=== PATIENT | female | born 1970 | race Caucasian/White ===

== ENCOUNTER 2018-08-26 10:53 | Emergency (ER) | payer OTHER ==
[~2018-08-26] VITALS: Ht 154.9 cm; Wt 72.6 kg
[~2018-08-26 10:53] MED LIST: ADVIL200 MG PO; BACTROBAN CREAM30 G1 TOP; IBUPROFEN 600600 M1 PO; LORTAB 5 MG/5001 TAB PO; NOHOMEMEDICATIONS; NORCO 5-325 TA1 EACH PO
[2018-08-26] MEDS ORDERED: ZPAK PO (11:35)
[2018-08-26] MEDS ORDERED: ACCUNEB SO1.25 MG/1 INH (11:35)
[2018-08-26] MEDS ORDERED: TESSALON PERLE100 MG PO (11:35)
[2018-08-26 11:58] VITALS: BP 126/86
== END 2018-08-26 11:59 | disposition home or self-care (01) ==
LOC: ER 10:53
DX: J18.9 Pneumonia, unspecified organism (principal); Z77.22 Contact with and (suspected) exposure to environmental tobacco smoke (acute) (chronic); Z90.49 Acquired absence of other specified parts of digestive tract